=== PATIENT | male | born 1970 | race African-American/Black ===

== ENCOUNTER 2020-02-24 08:06 | Emergency (ER) | payer OTHER, SELFPAY ==
--- NOTE | 2020-02-24 08:13 | ED.URI ---
HPI - URI/Sore Throat General Chief Complaint: Upper Respiratory Infection Stated Complaint: cough Time Seen by Provider: 02/24/20 08:33 Source: patient and RN notes reviewed Mode of arrival: ambulatory Limitations: no limitations History of Present Illness HPI Narrative: 49-year-old male history of insulin-dependent diabetes mellitus presents with concern for cough, sore throat, burning eyes. Reports symptoms started yesterday. He denies fever. Reports using cough drops with no relief. He also reports diarrhea that started yesterday. He denies body aches, shortness of breath. MD elicited complaint: cough Related Data Home Medications Medication Instructions Recorded Confirmed insulin aspart U-100 [Novolog 20 unit SUBCUT TID 10/29/19 02/24/20 Flexpen U-100 Insulin] insulin glargine [Basaglar KwikPen 60 unit SUBCUT DAILY 10/29/19 02/24/20 U-100 Insulin] lisinopril-hydrochlorothiazide 1 tablet PO BID 10/29/19 02/24/20 diclofenac sodium 100 mg PO BID 02/24/20 02/24/20 fenofibrate nanocrystallized 145 mg PO DAILY 02/24/20 02/24/20 insulin glargine [Basaglar KwikPen 60 unit SUBCUT DAILY 02/24/20 02/24/20 U-100 Insulin] Allergies Allergy/AdvReac Type Severity Reaction Status Date / Time No Known Allergies Allergy Verified 02/24/20 08:30 Review of Systems Review of Systems: Narrative: CONSTITUTIONAL: Denies malaise, chills, sweats, or fever. EYES: Denies visual changes, redness, or discharge. ENT: Reports rhinorrhea, congestion, sore throat. Denies sinus pain, otalgia. CARDIOVASCULAR: Denies chest pain, palpitations, or edema. RESPIRATORY: Reports cough. Denies dyspnea. GASTROINTESTINAL: Denies abdominal pain, nausea, vomiting. Reports diarrhea SKIN: Denies rash or itching. MUSCULOSKELETAL: Denies myalgia. NEUROLOGIC: Denies headache. All systems reviewed & are unremarkable except as noted in HPI and below PMFSH Comments At time of signature, agree with nursing past medical, surgical, social and family history. There is no relevant family history pertinent to the presenting complaint Exam Narrative: Exam Narrative: GENERAL: Well-appearing, well-nourished, and in no acute distress. HEAD: Normocephalic EYES: PERRLA, conjunctivae clear ENT: Nares clear, turbinates pink, clear discharge. Mucous membranes moist. TM pearly moscoso with dull light reflex bilaterally; no tragal tenderness. Oropharynx mildly erythematous without lesions. Tonsils not enlarged and without exudate, no drooling, no hoarseness, no trismus, uvula midline. NECK: Supple. No lymphadenopathy CHEST: Clear to auscultation, breath sounds equal. No wheezing, rhonchi, rales, or stridor. No respiratory distress, speaks in full sentences. HEART: Regular rate and rhythm. No murmur heard. SKIN: Warm, dry, no rash. NEURO: Alert and oriented x3. PSYCH: Normal mood and affect Course Course Emergency Course: According to ID pH screening tool, patient does not meet criteria for cover testing at this time. Patient is aware of diagnosis, understands and agrees to treatment plan. Anticipatory guidance given. Patient agrees to follow-up as directed and is aware of reasons to seek care at the emergency department. Portions of this record may have been created with voice recognition software Vital Signs Vital signs: Vital Signs Temperature 97.6 F 02/24/20 08:18 Pulse Rate 111 H 02/24/20 08:18 Respiratory Rate 20 02/24/20 08:18 Blood Pressure 155/98 H 02/24/20 08:18 Pulse Oximetry 96 02/24/20 08:18 Temperature 97.6 F 02/24/20 08:18 Pulse Rate 111 H 02/24/20 08:18 Respiratory Rate 20 02/24/20 08:18 Blood Pressure 155/98 H 02/24/20 08:18 Pulse Oximetry 96 02/24/20 08:18 Reviewed. Patient has history of hypertension MDM - URI/Sore Throat MDM Narrative Medical decision making narrative: Differential diagnosis considered: Strep pharyngitis, allergic rhinitis, upper respiratory tract infection, sinusitis, rhinosinusitis, nasophary
[2020-02-24 08:18] VITALS: BP 155/98; PULSE 111; RESP 20; TEMP 36.4; O2SAT 96
== END 2020-02-24 08:50 | disposition home or self-care (01) ==
PROVIDERS: Emergency Provider Nurse Practitioner; PCP Family Medicine
DX: R05 Cough (principal); I10 Essential (primary) hypertension
CPT/HCPCS: 99213; G0463